=== PATIENT | female | born 1965 | race Caucasian/White ===

== ENCOUNTER 2022-04-25 13:43 | Outpatient (CLI) | payer BC | END 2022-04-25 13:44 | disposition home or self-care (01) | LOC: CSHMAMMO 13:43 | PROVIDERS: ATTEND Family Medicine | DX: Z12.31 Encounter for screening mammogram for malignant neoplasm of breast (principal) | CPT/HCPCS: 77063; 77067 ==

== ENCOUNTER 2022-04-25 14:18 | Outpatient (CLI) | payer BC | END 2022-04-25 14:19 | disposition home or self-care (01) | LOC: CSHCP 14:18 | PROVIDERS: ATTEND Family Medicine | DX: R05.3 Chronic cough (principal); J98.4 Other disorders of lung | CPT/HCPCS: 94060; 94726; 94729; 94760 ==